=== PATIENT | male | born 1970 | race Caucasian/White ===

== ENCOUNTER → 2018-01-10 | Outpatient (CLI) | payer BC ==
--- NOTE | 2018-01-10 07:55 | MR ---
EXAMINATION TYPE: MR lumbar spine wo con DATE OF EXAM: 01/10/2018 COMPARISON: None HISTORY: Herniated nucleus pulposus / Degenerative disc dis TECHNIQUE: Multiplanar, multisequence images of the lumbar spine were acquired. FINDINGS: Lumbar spine vertebral bodies maintain normal vertebral body heights and alignment. Bone ma rrow signal is within normal limits with slight heterogeneity. Cauda equina terminates at T12-L1. Mul tilevel disc desiccation is seen. L1-L2: Normal disc appearance without desiccation. No herniation, protrusion or disc bulging. No ca nal stenosis is present. Foramina are patent bilaterally. L2-L3: There is a small broad-based disc bulge with mild facet arthropathy without significant spinal canal stenosis or neural foraminal narrowing. L3-L4: There is a left foraminal disc protrusion/herniation with extent into the left lateral recess moderately narrowing the left neural foramen superimposed upon a broad-based disc bulge resulting in mild right neural foraminal narrowing. No significant spinal canal stenosis. L4-L5: There is a right foraminal disc protrusion/herniation abutting the exiting L4 nerve root on th e right moderately narrowing the right neuroforamen. This is superimposed upon a broad-based disc bul ge creating mild left neural foraminal narrowing without significant spinal canal stenosis. Facet art hropathy is seen at this level. L5-S1: There is a broad-based disc bulge without significant spinal canal stenosis or neural foramina l narrowing. IMPRESSION: 1. Left foraminal herniation at L4-L5 abutting the exiting L3 nerve root on the left creating moderat e left neural foraminal narrowing. 2. Right foraminal disc herniation at L4-L5 abutting the right exiting L4 nerve root creating moderat e right neural foraminal narrowing. 3. No evidence of malalignment, vertebral body height loss or spinal canal stenosis. 4. Minimal multilevel degenerative disc disease as described above resulting in variable degrees of n eural foraminal narrowing.
== END | disposition home or self-care (01) ==
LOC: RADMRIMAIN 06:06
PROVIDERS: ATTEND Orthopaedic Surgery
DX: M99.73 Connective tissue and disc stenosis of intervertebral foramina of lumbar region (principal); M51.26 Other intervertebral disc displacement, lumbar region; M51.36 Other intervertebral disc degeneration, lumbar region
CPT/HCPCS: 72148

== ENCOUNTER → 2018-01-23 | Outpatient (CLI) | payer BC ==
--- NOTE | 2018-01-23 23:23 | MR ---
EXAMINATION TYPE: MR hand RT wo/w con DATE OF EXAM: 01/23/2018 COMPARISON: None HISTORY: Rt thumb mass/lesion on distal joint-marked with vit. e cap CONTRAST: Standard multiplanar, multisequence MRI departmental protocol utilizing 7.5 mL intravenous Gadavist g adolinium contrast. FINDINGS: Exam concentrates on the thumb. There is a oval-shaped 13 x 5 mm fluid collection on the do rsal aspect of the IP joint of the thumb. I see no bony destructive process. There is no evidence of the thumb fracture. Flexor and extensor tendon of the thumb appears intact. There is small effusion a t the first MP joint. There is no pathologic enhancement. IMPRESSION: Small MP joint effusion consistent with synovitis. Oval-shaped cystic mass posterior to the IP joint of the thumb is consistent with a synovial cyst. No fracture seen. No evidence of osteomyelitis.
== END | disposition home or self-care (01) ==
LOC: RADMRIMAIN 06:11
PROVIDERS: ATTEND Orthopaedic Surgery
DX: M25.441 Effusion, right hand (principal); M25.841 Other specified joint disorders, right hand
CPT/HCPCS: 73220; A9581

== ENCOUNTER 2020-01-17 17:13 | Inpatient (IN) | payer OTHER ==
--- NOTE | 2020-01-17 18:57 | ED ---
General Adult HPI - General Chief complaint: GI Bleed Stated complaint: Blood in Stool post op Time Seen by Provider: 01/17/20 18:05 Source: patient, RN notes reviewed, old records reviewed Mode of arrival: ambulatory Limitations: no limitations - History of Present Illness Initial comments: This a 50-year-old male who presents emergency Department with bright red blood per rectum. She states he had a colonoscopy yesterday with a polypectomy and since 2:30 this afternoon he said 6 bright red blood bowel movements. Patient states he felt a little lightheaded at one time but no longer feels lightheaded. Patient denies shortness of breath patient denies any palpitations. Patient denies any chest pain. Patient denies any blood thinners. Patient states Dr. Darnell did the colonoscopy - Related Data Home Medications Medication Instructions Recorded Confirmed Multivitamins, Thera [Multivitamin 1 tab PO DAILY 01/17/20 01/17/20 (formulary)] [place]-3 Fatty Acids [[place]-3] 1,000 mg PO DAILY 01/17/20 01/17/20 Allergies Allergy/AdvReac Type Severity Reaction Status Date / Time No Known Allergies Allergy Verified 01/17/20 19:27 Review of Systems ROS Statement: Those systems with pertinent positive or pertinent negative responses have been documented in the HPI. ROS Other: All systems not noted in ROS Statement are negative. Past Medical History Past Medical History: No Reported History History of Any Multi-Drug Resistant Organisms: None Reported Additional Past Surgical History / Comment(s): bilat achilles tendon Past Psychological History: No Psychological Hx Reported Smoking Status: Former smoker Past Alcohol Use History: Occasional Past Drug Use History: None Reported General Exam - General Exam Comments Initial Comments: GENERAL: Patient is well-developed and well-nourished. Patient is nontoxic and well- hydrated and is in mild distress. ENT: Neck is soft and supple. No significant lymphadenopathy is noted. Oropharynx i s clear. Moist mucous membranes. Neck has full range of motion without eliciting any pain. EYES: The sclera were anicteric and conjunctiva were pink and moist. Extraocular movements were intact and pupils were equal round and reactive to light. Eyelids were unremarkable. PULMONARY: Unlabored respirations. Good breath sounds bilaterally. No audible rales rhonchi or wheezing was noted. CARDIOVASCULAR: There is a regular rate and rhythm without any murmurs gallops or rubs. ABDOMEN: Soft and nontender with normal bowel sounds. SKIN: Skin is clear with no lesions or rashes and otherwise unremarkable. NEUROLOGIC: Patient is alert and oriented x3. Cranial nerves II through XII are grossly intact. Motor and sensory are also intact. Normal speech, volume and content. Symmetrical smile. MUSCULOSKELETAL: Normal extremities with adequate strength and full range of motion. LYMPHATICS: No significant lymphadenopathy is noted PSYCHIATRIC: Normal psychiatric evaluation. Limitations: no limitations Course Vital Signs 01/17/20 01/17/20 01/17/20 18:06 19:30 19:56 Temperature 98.1 F Pulse Rate 99 80 57 L Respiratory 18 18 18 Rate Blood Pressure 115/87 126/80 105/68 O2 Sat by Pulse 100 97 97 Oximetry Medical Decision Making - Medical Decision Making Patient went into the bathroom to have his seventh bloody bowel movement he had a lot of cramping he became lightheaded and felt the ground slowly was no injury. Patient blood pressure was initially low he received a liter of fluid. An EKG was done at that time. EKG showed a normal sinus rhythm at 60 bpm [place] interval 142 QRS is 86 QT interval 396 QTC is 396. Patient's EKG shows no ST segment elevation or depression. I spoke with Dr. Wharton he agreed to admit the patient admitted the patient wrote admitting orders. Patient received a liter and a half of fluid in the emergency department. Patient's blood pressure responded quite quickly once we put him in [facility]. - Lab Data Result diagrams: 01/17/20 18:57 01/17/20 18:57 Lab Results 01/17/20 01/17/20 01/17/20 Range/Units 18:57 18:57 18:57 WBC 11.1 H (3.8-10.6) k/uL RBC 4.26 L (4.30-5.90) m/uL Hgb 13.1 (13.0-17.5) gm/dL Hct 40.0 (39.0-53.0) % MCV 93.8 (80.0-100.0) fL MCH 30.7 (25.0-35.0) pg MCHC 32.7 (31.0-37.0) g/dL RDW 12.9 (11.5-15.5) % Plt Count 299 (150-450) k/uL Neutrophils % 60 % Lymphocytes % 31 % Monocytes % 5 % Eosinophils % 2 % Basophils % 1 % Neutrophils # 6.6 (1.3-7.7) k/uL Lymphocytes # 3.4 (1.0-4.8) k/uL Monocytes # 0.6 (0-1.0) k/uL Eosinophils # 0.2 (0-0.7) k/uL Basophils # 0.1 (0-0.2) k/uL PT 10.0 (9.0-12.0) sec INR 1.0 (<1.2) APTT 20.5 L (22.0-30.0) sec Sodium 139 (137-145) mmol/L Potassium 4.5 (3.5-5.1) mmol/L Chloride 109 H (98-107) mmol/L Carbon Dioxide 21 L (22-30) mmol/L Anion Gap 9 mmol/L BUN 16 (9-20) mg/dL Creatinine 0.86 (0.66-1.25) mg/dL Est GFR (CKD-EPI)AfAm >90 (>60 ml/min/1.73 sqM) Est GFR (CKD-EPI)NonAf >90 (>60 ml/min/1.73 sqM) Glucose 140 H (74-99) mg/dL Calcium 9.0 (8.4-10.2) mg/dL Total Bilirubin 0.4 (0.2-1.3) mg/dL AST 34 (17-59) U/L ALT 35 (4-49) U/L Alkaline Phosphatase 43 (38-126) U/L Total Protein 6.3 (6.3-8.2) g/dL Albumin 4.1 (3.5-5.0) g/dL Disposition Clinical Impression: Lower gastrointestinal hemorrhage Disposition: ADMITTED IP TO THIS HOSP Referrals: Win Lacy DO [Primary Care Provider] - 1-2 days Time of Disposition: 20:00
[2020-01-17 19:13] LABS: Basophils # (A) 0.1 k/uL (0-0.2); Basophils % (A) 1 %; Eosinophils # (A) 0.2 k/uL (0-0.7); Eosinophils % (A) 2 %; HGB 13.1 gm/dL (13.0-17.5); Lymphocytes # (A) 3.4 k/uL (1.0-4.8); Lymphocytes % (A) 31 %; MCH 30.7 pg (25.0-35.0); MCHC 32.7 g/dL (31.0-37.0); MCV 93.8 fL (80.0-100.0); Mean Platelet Volume 7.7; Monocytes # (A) 0.6 k/uL (0-1.0); Monocytes % (A) 5 %; Neutrophils # (A) 6.6 k/uL (1.3-7.7); Neutrophils % (A) 60 %; Platelet Count 299 k/uL (150-450); RBC 4.26 m/uL (4.30-5.90); RDW 12.9 % (11.5-15.5); WBC 11.1 k/uL (3.8-10.6)
[2020-01-17 19:25] LABS: Partial Thromboplastin Time 20.5 sec (22.0-30.0)
[2020-01-17 19:29] LABS: ALT 35 U/L (4-49); AST 34 U/L (17-59); African American GFR (CKD) >90 (>60 ml/min/1.73 sqM); Albumin 4.1 g/dL (3.5-5.0); Alkaline Phosphatase 43 U/L (38-126); Anion Gap 9 mmol/L; Blood Urea Nitrogen 16 mg/dL (9-20); Carbon Dioxide 21 mmol/L (22-30); Chloride 109 mmol/L (98-107); Glucose 140 mg/dL (74-99); Non-African American GFR(CKD) >90 (>60 ml/min/1.73 sqM); Potassium 4.5 mmol/L (3.5-5.1); Sodium 139 mmol/L (137-145); Total Bilirubin 0.4 mg/dL (0.2-1.3); Total Protein 6.3 g/dL (6.3-8.2)
[2020-01-17] MEDS ORDERED: SODIUM CHLORIDE 0.9% 1,500 ML IV ONE (19:54)
[2020-01-17] MEDS ORDERED: SODIUM CHLORIDE 0.9% 1,000 ML IV ONE (20:00)
[2020-01-17 20:49] LABS: Basophils % (A) 0 %; Eosinophils # (A) 0.1 k/uL (0-0.7); Eosinophils % (A) 1 %; HCT 33.2 % (39.0-53.0); HGB 11.2 gm/dL (13.0-17.5); Lymphocytes # (A) 2.2 k/uL (1.0-4.8); Lymphocytes % (A) 14 %; MCH 32.2 pg (25.0-35.0); MCHC 33.7 g/dL (31.0-37.0); MCV 95.5 fL (80.0-100.0); Mean Platelet Volume 7.5; Monocytes # (A) 0.5 k/uL (0-1.0); Monocytes % (A) 3 %; Neutrophils % (A) 82 %; Platelet Count 269 k/uL (150-450); RBC 3.47 m/uL (4.30-5.90); RDW 12.8 % (11.5-15.5); WBC 15.9 k/uL (3.8-10.6)
[2020-01-17] MEDS ORDERED: SODIUM CHLORIDE 0.9% 2,000 ML IV ONE (20:51)
[2020-01-17] MEDS ORDERED: MAGNESIUM CITRATE 296 ML BOTTLE PO ONE (21:02)
[2020-01-17 23:44] LABS: Glucose,Whole Blood 158 mg/dL (75-99)
[2020-01-18 00:07] LABS: Glucose,Whole Blood 175 mg/dL (75-99)
[2020-01-18] MEDS ORDERED: SODIUM CHLORIDE 0.9% 2,000 ML IV ONE (00:20)
[2020-01-18 00:47] LABS: Basophils % (A) 0 %; Eosinophils # (A) 0.1 k/uL (0-0.7); Eosinophils % (A) 1 %; HCT 27.9 % (39.0-53.0); Lymphocytes # (A) 1.9 k/uL (1.0-4.8); Lymphocytes % (A) 18 %; MCH 29.7 pg (25.0-35.0); MCHC 31.4 g/dL (31.0-37.0); MCV 94.8 fL (80.0-100.0); Mean Platelet Volume 7.5; Monocytes # (A) 0.4 k/uL (0-1.0); Monocytes % (A) 3 %; Neutrophils # (A) 8.5 k/uL (1.3-7.7); Neutrophils % (A) 78 %; Platelet Count 236 k/uL (150-450); RBC 2.94 m/uL (4.30-5.90); RDW 12.9 % (11.5-15.5); WBC 10.9 k/uL (3.8-10.6)
[2020-01-18 00:50] LABS: HGB 8.8 gm/dL (13.0-17.5)
[2020-01-18] MEDS ORDERED: NALOXONE 0.4 MG/ML 1 ML VIAL IV PRN (00:57)
[2020-01-18 00:58] LABS: INR 1.1 (<1.2); Prothrombin Time 11.1 sec (9.0-12.0)
[2020-01-18 01:07] LABS: Partial Thromboplastin Time 21.8 sec (22.0-30.0)
[2020-01-18] MEDS ORDERED: PHENYLEPHRINE-0.9% NACL SYG 1 MG/10 ML SYRINGE ONE (01:16)
[2020-01-18] MEDS ORDERED: PROPOFOL 10 MG/ML 20 ML VIAL IV ONE (01:16)
[2020-01-18] MEDS ORDERED: IV FLUID CONTINUATION 1,000 ML IV ONE (01:24)
--- NOTE | 2020-01-18 01:45 | P.PCN ---
Date of Procedure: 01/18/20 Procedure(s) Performed: BRIEF HISTORY: Patient is a 50-year-old pleasant white male admitted to the hospital with acute severe post-polypectomy lower GI bleed. He had a colonoscopy done by on January 15 and had a 1.5 cm cecal polyp that was removed by snare polypectomy. 24 hours later he had significant lower GI bleeding and came to the emergency room yesterday evening and subsequently admitted to the hospital for further management. He'll stop his hemoglobin from 13-8 g/dL requiring 2 units of blood transfusion. He scheduled for a colonoscopy on an emergency basis at the bedside in the intensive care unit. PROCEDURE PERFORMED: Colonoscopy with Endo Clip placement. PREOPERATIVE DIAGNOSIS: Acute post polypectomy lower GI bleed. IV sedation per Anesthesia. PROCEDURE: After informed consent was obtained, the patient, was brought into the endoscopy unit. IV sedation was administered by Anesthesia under continuous monitoring. Digital rectal examination was normal. Initially the Olympus CF-160 flexible video colonoscope was then inserted in the rectum, gradually advanced into the cecum without any difficulty. Careful examination was performed as the scope was gradually being withdrawn. Ileocecal valve and the appendiceal orifice were visualized and appeared normal. There was large amount of fresh blood with clots noted throughout the entire colon. In the base of the cecum there was a large clot identified and as soon as the clot was dislodged the polypectomy site with a visible vessel was noted. 2 endoclips were placed on the visible vessel with good hemostasis. No further bleeding noted. At this time the scope was withdrawn. Clots and blood were suctioned and irrigated. Patient tolerated the procedure well. IMPRESSION: Visible vessel with a large clot noted in the base of the cecum at the site of recent polypectomy status post Endo Clip placement as described above with good hemostasis RECOMMENDATIONS: Findings of this examination were discussed with the patient as well as his . We will monitor him closely with CBC every 6 hours.. Transfuse as needed. Keep him nothing by mouth for now.
--- NOTE | 2020-01-18 06:03 | CONS ---
CONSULTATION DATE OF DICTATION: 01/18/2020 REASON FOR CONSULTATION: Acute post polypectomy GI bleed. HISTORY OF PRESENT ILLNESS: The patient is a 50-year-old pleasant white male who underwent a screening colonoscopy [address] Darnell at [facility] and was noted to have a 1.5 cm polyp in the base of the cecum that was removed by snare polypectomy. Twenty-four hours later, he started having significant lower GI bleed. He had at least 4 or 5 episodes of bright red blood per rectum. He came to the emergency room and was found to be hypotensive and was admitted to the hospital for further management. Initial hemoglobin was 13 g/dL. While he was on the floor, he subsequently continued to have significant bleeding and became hypotensive and was transferred to the intensive care unit. Repeat hemoglobin was 8.8 g/dL. He denies any abdominal pain. No nausea, vomiting. PAST MEDICAL HISTORY: Unremarkable. MEDICATIONS AT HOME: [place] 3 fatty acids and multivitamin. ALLERGIES: No known drug allergies. SOCIAL HISTORY: alcohol use. FAMILY HISTORY: Unremarkable. REVIEW OF SYSTEMS: CARDIOPULMONARY: No chest pain, shortness of breath. GENITOURINARY: No dysuria or hematuria. MUSCULOSKELETAL: Unremarkable. SKIN: Unremarkable. ENDOCRINE: Unremarkable. PSYCHIATRIC: Unremarkable. NEUROLOGY: Unremarkable. ENT/VISION: Unremarkable. CONSTITUTIONAL: No recent weight loss. No fever, chills, night sweats. PHYSICAL EXAMINATION: He appears comfortable, no apparent distress. Vital signs are stable. Blood pressure is 110/72, pulse rate 82 per minute. Afebrile. HEENT EXAMINATION: Unremarkable. Conjunctivae pink. Sclerae anicteric. Oral cavity no lesions. NECK: No JVD or lymph node enlargement. CHEST: Clear to auscultation. HEART: Regular rate and rhythm. ABDOMEN: Soft. Bowel sounds are positive. No organomegaly. EXTREMITIES: No pedal edema. SKIN: No rashes. NEUROLOGIC: Alert and oriented x3. No focal deficits. LABS: Initial hemoglobin 13.1. Repeat hemoglobin 8.8 6 hours later. IMPRESSION: Acute massive lower gastrointestinal bleed with hemodynamic instability likely from post polypectomy. He had a colonoscopy [address] Darnell that revealed a 1.5 cm cecal polyp that was removed by snare polypectomy. Hemoglobin dropped from 13 to 8.8 g/dL. RECOMMENDATIONS: 1. Transfuse with 2 units of PRBC. 2. We will proceed with colonoscopy on an emergency basis at the bedside for control of post polypectomy bleed. The plan was discussed with the patient and his at the bedside. Thank you for this consultation. MARIE / NATY: [id number] /
[2020-01-18] MEDS: PANTOPRAZOLE 40 MG/10 ML VIAL IVP SCH ×2 (09:00→20:49)
[2020-01-18 09:01] LABS: HCT 28.7 % (39.0-53.0); HGB 9.4 gm/dL (13.0-17.5); MCH 30.3 pg (25.0-35.0); MCHC 32.9 g/dL (31.0-37.0); MCV 92.2 fL (80.0-100.0); Mean Platelet Volume 7.5; Platelet Count 203 k/uL (150-450); RBC 3.11 m/uL (4.30-5.90); RDW 13.4 % (11.5-15.5); WBC 7.9 k/uL (3.8-10.6)
[2020-01-18 09:17] LABS: African American GFR (CKD) >90 (>60 ml/min/1.73 sqM); Anion Gap 2 mmol/L; Blood Urea Nitrogen 11 mg/dL (9-20); Carbon Dioxide 21 mmol/L (22-30); Chloride 114 mmol/L (98-107); Glucose 104 mg/dL (74-99); Non-African American GFR(CKD) >90 (>60 ml/min/1.73 sqM); Sodium 137 mmol/L (137-145)
--- NOTE | 2020-01-18 11:51 | P.GSHP ---
History of Present Illness H&P Date: 01/17/20 Chief Complaint: GI bleed This a 50-year-old male who underwent colonoscopy by Dr. Brannon yesterday. Patient. He had a cecal polyp which was removed with a snare biopsy. Patient developed rectal bleeding this afternoon around 1600. He had another bloody bowel movement. He then presented to emergency room. He has syncopal episode in the emergency room. With systolic blood pressures in the 80s. Patient currently receiving fluid bolus. Past Medical History Past Medical History: No Reported History History of Any Multi-Drug Resistant Organisms: None Reported Additional Past Surgical History / Comment(s): bilat achilles tendon Past Psychological History: No Psychological Hx Reported Smoking Status: Former smoker Past Alcohol Use History: Occasional Past Drug Use History: None Reported - Past Family History Father Family Medical History: Cancer, Coronary Artery Disease (CAD) Mother Family Medical History: Dementia Medications and Allergies Home Medications Medication Instructions Recorded Confirmed Type Multivitamins, Thera [Multivitamin 1 tab PO DAILY 01/17/20 01/17/20 History (formulary)] [place]-3 Fatty Acids [[place]-3] 1,000 mg PO DAILY 01/17/20 01/17/20 History Allergies Allergy/AdvReac Type Severity Reaction Status Date / Time No Known Allergies Allergy Verified 01/17/20 19:27 Surgical - Exam Vital Signs Temp Pulse Resp BP Pulse Ox 98.1 F 99 18 115/87 100 01/17/20 18:06 01/17/20 18:06 01/17/20 18:06 01/17/20 18:06 01/17/20 18:06 - General well developed, well nourished, no distress - Eyes PERRL - ENT normal pinna - Neck no masses - Respiratory normal expansion - Cardiovascular Rhythm: regular - Abdomen Abdomen: soft, non tender Results - Labs 01/18/20 08:40 01/18/20 08:40 Abnormal Lab Results - Last 24 Hours (Table) 01/17/20 01/17/20 01/17/20 Range/Units 18:57 18:57 18:57 WBC 11.1 H (3.8-10.6) k/uL RBC 4.26 L (4.30-5.90) m/uL Hgb (13.0-17.5) gm/dL Hct (39.0-53.0) % Neutrophils # (1.3-7.7) k/uL APTT 20.5 L (22.0-30.0) sec Chloride 109 H (98-107) mmol/L Carbon Dioxide 21 L (22-30) mmol/L Creatinine (0.66-1.25) mg/dL Glucose 140 H (74-99) mg/dL POC Glucose (mg/dL) (75-99) mg/dL Calcium (8.4-10.2) mg/dL Crossmatch 01/17/20 01/17/20 01/17/20 Range/Units 20:34 20:34 23:34 WBC 15.9 H (3.8-10.6) k/uL RBC 3.47 L (4.30-5.90) m/uL Hgb 11.2 L (13.0-17.5) gm/dL Hct 33.2 L (39.0-53.0) % Neutrophils # 13.0 H (1.3-7.7) k/uL APTT (22.0-30.0) sec Chloride (98-107) mmol/L Carbon Dioxide (22-30) mmol/L Creatinine (0.66-1.25) mg/dL Glucose (74-99) mg/dL POC Glucose (mg/dL) 158 H (75-99) mg/dL Calcium (8.4-10.2) mg/dL Crossmatch See Detail 01/18/20 01/18/20 01/18/20 Range/Units 00:05 00:15 00:15 WBC 10.9 H (3.8-10.6) k/uL RBC 2.94 L (4.30-5.90) m/uL Hgb 8.8 L D (13.0-17.5) gm/dL Hct 27.9 L (39.0-53.0) % Neutrophils # 8.5 H (1.3-7.7) k/uL APTT 21.8 L (22.0-30.0) sec Chloride (98-107) mmol/L Carbon Dioxide (22-30) mmol/L Creatinine (0.66-1.25) mg/dL Glucose (74-99) mg/dL POC Glucose (mg/dL) 175 H (75-99) mg/dL Calcium (8.4-10.2) mg/dL Crossmatch 01/18/20 01/18/20 Range/Units 08:40 08:40 WBC (3.8-10.6) k/uL RBC 3.11 L (4.30-5.90) m/uL Hgb 9.4 L (13.0-17.5) gm/dL Hct 28.7 L (39.0-53.0) % Neutrophils # (1.3-7.7) k/uL APTT (22.0-30.0) sec Chloride 114 H (98-107) mmol/L Carbon Dioxide 21 L (22-30) mmol/L Creatinine 0.60 L (0.66-1.25) mg/dL Glucose 104 H (74-99) mg/dL POC Glucose (mg/dL) (75-99) mg/dL Calcium 7.0 L (8.4-10.2) mg/dL Crossmatch Diabetes panel 01/17/20 01/18/20 Range/Units 18:57 08:40 Sodium 139 137 (137-145) mmol/L Potassium 4.5 4.0 (3.5-5.1) mmol/L Chloride 109 H 114 H (98-107) mmol/L Carbon Dioxide 21 L 21 L (22-30) mmol/L BUN 16 11 (9-20) mg/dL Creatinine 0.86 0.60 L (0.66-1.25) mg/dL Glucose 140 H 104 H (74-99) mg/dL Calcium 9.0 7.0 L (8.4-10.2) mg/dL AST 34 (17-59) U/L ALT 35 (4-49) U/L Alkaline Phosphatase 43 (38-126) U/L Total Protein 6.3 (6.3-8.2) g/dL Albumin 4.1 (3.5-5.0) g/dL Calcium panel 01/17/20 01/18/20 Range/Units 18:57 08:40 Calcium 9.0 7.0 L (8.4-10.2) mg/dL Albumin 4.1 (3.5-5.0) g/dL Pituitary panel 01/17/20 01/18/20 Range/Units 18:57 08:40 Sodium 139 137 (137-145) mmol/L Potassium 4.5 4.0 (3.5-5.1) mmol/L Chloride 109 H 114 H (98-107) mmol/L Carbon Dioxide 21 L 21 L (22-30) mmol/L BUN 16 11 (9-20) mg/dL Creatinine 0.86 0.60 L (0.66-1.25) mg/dL Glucose 140 H 104 H (74-99) mg/dL Calcium 9.0 7.0 L (8.4-10.2) mg/dL Adrenal panel 01/17/20 01/18/20 Range/Units 18:57 08:40 Sodium 139 137 (137-145) mmol/L Potassium 4.5 4.0 (3.5-5.1) mmol/L Chloride 109 H 114 H (98-107) mmol/L Carbon Dioxide 21 L 21 L (22-30) mmol/L BUN 16 11 (9-20) mg/dL Creatinine 0.86 0.60 L (0.66-1.25) mg/dL Glucose 140 H 104 H (74-99) mg/dL Calcium 9.0 7.0 L (8.4-10.2) mg/dL Total Bilirubin 0.4 (0.2-1.3) mg/dL AST 34 (17-59) U/L ALT 35 (4-49) U/L Alkaline Phosphatase 43 (38-126) U/L Total Protein 6.3 (6.3-8.2) g/dL Albumin 4.1 (3.5-5.0) g/dL Assessment and Plan Assessment: Acute GI bleed after colonoscopy. This most likely due to the polypectomy site. Patient will be typed and crossed. He'll remove the hospital. We will consult GI for possible intervention if bleeding persists.
--- NOTE | 2020-01-18 11:52 | P.PN ---
Progress Note - Text Progress Note Date: 01/18/20 The patient states he feels better. He's has no abdominal pain. He has been hemodialysis stable since his endoscopic procedure last night. He will was 9.4. On exam vital signs are stable. Abdomen soft. Status post GI bleed related to polypectomy excision. Patient appears to be in a stable with no further evidence of GI bleed. We will start him on diet.
--- NOTE | 2020-01-18 12:15 | P.CNPUL ---
History of Present Illness Consult date: 01/18/20 Requesting physician: Anish Feliz Reason for consult: other (Acute lower GI bleeding) Chief complaint: Bright red blood per rectum History of present illness: This is a 50-year-old white male underwent colonoscopy by Dr. dominguez on 01/16/20, and he had a cecal polyp removed with a snare biopsy. Patient was discharged home, however yesterday the patient came back to the ER around 4 PM complaining of recurrent episodes of bloody bowel movements. Patient had a syncopal episode in the ER, and blood pressure was in the 80s systolic. He received IV fluids. Initial hemoglobin was 11.2 on admission, patient was admitted to the floor, however he developed further episodes of lower GI bleeding, and he required 2 units of packed RBCs given last night. After 2 units, repeat hemoglobin was 9.4 . Patient was seen by gastroenterology on consultation, underwent colonoscopy earlier this morning, he was found to have a visible vessel with a large clot noted in the base of the cecum at the site of the recent polypectomy. Underwent endo clip placement with good hemostasis. Patient was sent back to the ICU, no further episodes of GI bleeding, patient was doing great. I saw the patient this morning, and felt strongly that the patient could be transferred out of the ICU and possibly consider for discharge home later today. Patient is asymptomatic. Denies any further episodes of GI bleeding since his last colonoscopy. Review of Systems Constitutional: Negative HEENT: Negative Pulmonary: Negative Cardiac: Negative GI: As noted in HPI. Genitourinary: Negative Muscular skeletal: Negative Skin: Negative Neuro: Negative Endocrine: Negative Hematologic: As noted in HPI. Psychiatric: Negative Past Medical History Past Medical History: No Reported History History of Any Multi-Drug Resistant Organisms: None Reported Additional Past Surgical History / Comment(s): bilat achilles tendon Past Psychological History: No Psychological Hx Reported Smoking Status: Former smoker Past Alcohol Use History: Occasional Past Drug Use History: None Reported - Past Family History Father Family Medical History: Cancer, Coronary Artery Disease (CAD) Mother Family Medical History: Dementia Medications and Allergies Home Medications Medication Instructions Recorded Confirmed Type Multivitamins, Thera [Multivitamin 1 tab PO DAILY 01/17/20 01/17/20 History (formulary)] Nine[place]-3 Fatty Acids [[place]ine[place]-3] 1,000 mg PO DAILY 01/17/20 01/17/20 History Allergies Allergy/AdvReac Type Severity Reaction Status Date / Time No Known Allergies Allergy Verified 01/17/20 19:27 Physical Exam Vitals: Vital Signs Temp Pulse Pulse Resp BP BP Pulse Ox 01/18/20 08:30 98 24 97/57 01/18/20 08:00 98.2 F 58 L 10 L 98/59 99 01/18/20 07:30 56 L 10 L 96/69 97 01/18/20 07:00 58 L 12 110/64 97 01/18/20 06:30 60 12 100/55 98 01/18/20 06:00 61 16 93/59 98 01/18/20 05:30 62 14 99/60 98 01/18/20 05:00 64 13 99/62 99 01/18/20 04:45 97.8 F 64 12 110/64 01/18/20 04:30 60 8 L 102/53 98 01/18/20 04:15 98.2 F 65 10 L 99/60 01/18/20 04:05 98.1 F 64 12 99/62 01/18/20 04:03 97.9 F 63 12 102/53 01/18/20 04:01 98.1 F 73 12 99/66 01/18/20 04:00 98.1 F 65 16 101/58 98 01/18/20 03:45 62 5 L 97/63 98 01/18/20 03:30 64 11 L 99/60 98 01/18/20 03:15 64 13 103/66 99 01/18/20 03:00 63 10 L 109/67 99 01/18/20 02:45 65 14 100/56 100 01/18/20 02:30 72 12 87/58 98 01/18/20 02:15 67 10 L 96/52 99 01/18/20 02:05 97.6 F 66 13 100/56 01/18/20 02:00 71 11 L 87/50 98 01/18/20 01:59 97.5 F L 95 12 88/51 01/18/20 01:55 85 12 87/50 96 01/18/20 01:50 95 8 L 87/50 98 01/18/20 01:45 106 H 10 L 91/54 100 01/18/20 01:40 98 11 L 94/56 100 01/18/20 01:35 98.0 F 100 0 L 78/48 100 01/18/20 01:30 94 21 113/73 100 01/18/20 01:25 98.5 F 88 8 L 113/73 100 01/18/20 01:20 75 16 113/73 100 01/18/20 01:15 71 28 H 111/69 100 01/18/20 01:00 65 12 105/63 99 01/18/20 00:30 66 8 L 115/71 98 01/17/20 23:43 97.9 F 59 L 18 106/68 96 01/17/20 22:15 98.4 F 68 18 99/65 99 01/17/20 21:31 98.1 F 61 18 113/74 100 01/17/20 19:56 57 L 18 105/68 97 01/17/20 19:30 80 18 126/80 97 01/17/20 18:06 98.1 F 99 18 115/87 100 Intake and Output 01/17/20 01/18/20 01/18/20 22:59 06:59 14:59 Intake Total 3730 75 Output Total 800 0 Balance 2930 75 Intake: IV 2800 75 Sodium Chloride 0.9% 1, 300 75 000 ml @ 75 mls/hr IV . [id number] ONE Rx#:[id number] Sodium Chloride 0.9% 2, 2000 000 ml @ 999 mls/hr IV . Q2H1M ONE Rx#:[id number] Blood Product 930 Rc As-1 Unit 310 [id number] Rc As-1 Unit 0 [id number] Output: Urine 300 0 Urine/Stool Mix 500 Other: Voiding Method Urinal # Voids 0 Weight 88.451 kg Physical Exam Gen.: Revealed a 50-year-old white male pleasant in no distress. Head: Atraumatic, normocephalic. HEENT:[Neck is supple.] [No neck masses.] [No thyromegaly.] [No JVD.] Chest: [Clear throughout, no crackles, no rhonchi, no wheezes.] Cardiac Exam: [Normal S1 and S2, no S3 gallop, no murmur.] Abdomen: [Soft, nontender, no megaly, no rebound, no guarding, normal bowel sounds.] Extremities: [No clubbing, no edema, no cyanosis.] Good pulses bilaterally. Neurological Exam: [No focal neurologic deficit.] Alert oriented 3. Psychiatric: Normal mood affect and normal mental status examination. Skin: No rashes. Results - Laboratory Findings CBC and BMP: 01/18/20 08:40 01/18/20 08:40 PT/INR, D-dimer PT 11.1 sec (9.0-12.0) 01/18/20 00:15 INR 1.1 (<1.2) 01/18/20 00:15 Abnormal lab findings: Abnormal Labs 01/17/20 01/17/20 01/17/20 18:57 18:57 18:57 WBC 11.1 H RBC 4.26 L Hgb Hct Neutrophils # APTT 20.5 L Chloride 109 H Carbon Dioxide 21 L Creatinine Glucose 140 H POC Glucose (mg/dL) Calcium Crossmatch 01/17/20 01/17/20 01/17/20 20:34 20:34 23:34 WBC 15.9 H RBC 3.47 L Hgb 11.2 L Hct 33.2 L Neutrophils # 13.0 H APTT Chloride Carbon Dioxide Creatinine Glucose POC Glucose (mg/dL) 158 H Calcium Crossmatch See Detail 01/18/20 01/18/20 01/18/20 00:05 00:15 00:15 WBC 10.9 H RBC 2.94 L Hgb 8.8 L D Hct 27.9 L Neutrophils # 8.5 H APTT 21.8 L Chloride Carbon Dioxide Creatinine Glucose POC Glucose (mg/dL) 175 H Calcium Crossmatch 01/18/20 01/18/20 08:40 08:40 WBC RBC 3.11 L Hgb 9.4 L Hct 28.7 L Neutrophils # APTT Chloride 114 H Carbon Dioxide 21 L Creatinine 0.60 L Glucose 104 H POC Glucose (mg/dL) Calcium 7.0 L Crossmatch Assessment and Plan Assessment: Impression: Acute massive lower GI bleeding related to recent polypectomy. Status post colonoscopy 2 days ago, and status post polypectomy of a 1.5 cm cecal polyp. Acute blood loss anemia, secondary to above. Status post repeat colonoscopy and endo clip placement with good hemostasis. Recommendation: Patient is presently doing quite well, No further episodes of bleeding, patient is hemodynamically stable. Transfer patient out of the ICU today, and consider discharging the patient home if cleared by general surgery and gastroenterology. Will follow when necessary Time with Patient: Greater than 30
[2020-01-18 15:18] LABS: HCT 25.6 % (39.0-53.0); HGB 8.5 gm/dL (13.0-17.5); MCHC 33.3 g/dL (31.0-37.0); MCV 93.1 fL (80.0-100.0); Mean Platelet Volume 8.1; Platelet Count 193 k/uL (150-450); RBC 2.75 m/uL (4.30-5.90); RDW 13.5 % (11.5-15.5); WBC 6.5 k/uL (3.8-10.6)
--- NOTE | 2020-01-18 15:51 | P.CONS ---
History of Present Illness - Reason for Consult Consult date: 01/18/20 Medical management, history of nicotine dependence Requesting physician: Anish Feliz - Chief Complaint Rectal bleeding - History of Present Illness This is a 50-year-old pleasant gentleman, recently underwent colonoscopy with polypectomy with Dr. Darnell on 01/16/20, discharged, developed bright red rectal bleeding at home with lightheadedness and returned to the ER. While in the ER, hypotensive, with systolic blood pressures in the 80s, with a syncopal episode. Hemoglobin 11.2 on admission, continued having rectal bleeding and dropped to 8.5, Received IV fluid resuscitation and 2 units of packed RBCs. Current hemoglobin 9.4. Evaluated by GI, underwent colonoscopy this morning discovering a large clot at the base of the cecum and at the site of recent polypectomy, status post Endo Clip placement. Currently denies chest pain, palpitations or shortness of breath. Denies lightheadedness, dizziness or focal deficits. EKG reporting normal sinus rhythm. Review of Systems ROS Statement: Those systems with pertinent positive or pertinent negative responses have been documented in the HPI. ROS Other: All systems not noted in ROS Statement are negative. Past Medical History Past Medical History: No Reported History History of Any Multi-Drug Resistant Organisms: None Reported Additional Past Surgical History / Comment(s): bilat achilles tendon Past Psychological History: No Psychological Hx Reported Smoking Status: Former smoker Past Alcohol Use History: Occasional Past Drug Use History: None Reported - Past Family History Father Family Medical History: Cancer, Coronary Artery Disease (CAD) Mother Family Medical History: Dementia Medications and Allergies Home Medications Medication Instructions Recorded Confirmed Type Multivitamins, Thera [Multivitamin 1 tab PO DAILY 01/17/20 01/17/20 History (formulary)] Cas[place]-3 Fatty Acids [Casanova-3] 1,000 mg PO DAILY 01/17/20 01/17/20 History Allergies Allergy/AdvReac Type Severity Reaction Status Date / Time No Known Allergies Allergy Verified 01/17/20 19:27 Physical Exam Vitals: Vital Signs Temp Pulse Pulse Resp BP BP Pulse Ox 01/18/20 15:00 98.2 F 61 18 105/66 99 01/18/20 08:30 98 24 97/57 01/18/20 08:00 98.2 F 58 L 10 L 98/59 99 01/18/20 07:30 56 L 10 L 96/69 97 01/18/20 07:00 58 L 12 110/64 97 01/18/20 06:30 60 12 100/55 98 01/18/20 06:00 61 16 93/59 98 01/18/20 05:30 62 14 99/60 98 01/18/20 05:00 64 13 99/62 99 01/18/20 04:45 97.8 F 64 12 110/64 01/18/20 04:30 60 8 L 102/53 98 01/18/20 04:15 98.2 F 65 10 L 99/60 01/18/20 04:05 98.1 F 64 12 99/62 01/18/20 04:03 97.9 F 63 12 102/53 01/18/20 04:01 98.1 F 73 12 99/66 01/18/20 04:00 98.1 F 65 16 101/58 98 01/18/20 03:45 62 5 L 97/63 98 01/18/20 03:30 64 11 L 99/60 98 01/18/20 03:15 64 13 103/66 99 01/18/20 03:00 63 10 L 109/67 99 01/18/20 02:45 65 14 100/56 100 01/18/20 02:30 72 12 87/58 98 01/18/20 02:15 67 10 L 96/52 99 01/18/20 02:05 97.6 F 66 13 100/56 01/18/20 02:00 71 11 L 87/50 98 01/18/20 01:59 97.5 F L 95 12 88/51 01/18/20 01:55 85 12 87/50 96 01/18/20 01:50 95 8 L 87/50 98 01/18/20 01:45 106 H 10 L 91/54 100 01/18/20 01:40 98 11 L 94/56 100 01/18/20 01:35 98.0 F 100 0 L 78/48 100 01/18/20 01:30 94 21 113/73 100 01/18/20 01:25 98.5 F 88 8 L 113/73 100 01/18/20 01:20 75 16 113/73 100 01/18/20 01:15 71 28 H 111/69 100 01/18/20 01:00 65 12 105/63 99 01/18/20 00:30 66 8 L 115/71 98 01/17/20 23:43 97.9 F 59 L 18 106/68 96 01/17/20 22:15 98.4 F 68 18 99/65 99 01/17/20 21:31 98.1 F 61 18 113/74 100 01/17/20 19:56 57 L 18 105/68 97 01/17/20 19:30 80 18 126/80 97 01/17/20 18:06 98.1 F 99 18 115/87 100 Intake and Output 01/18/20 01/18/20 01/18/20 06:59 14:59 22:59 Intake Total 3730 75 600 Output Total 800 0 600 Balance 2930 75 0 Intake: IV 2800 75 600 Sodium Chloride 0.9% 1, 300 75 600 000 ml @ 75 mls/hr IV . [id number] ONE Rx#:[id number] Sodium Chloride 0.9% 2, 2000 000 ml @ 999 mls/hr IV . Q2H1M ONE Rx#:[id number] Blood Product 930 Rc As-1 Unit 310 [id number] Rc As-1 Unit 0 [id number] Output: Urine 300 0 600 Urine/Stool Mix 500 Other: Voiding Method Urinal # Voids 0 2 # Bowel Movements 2 PHYSICAL EXAM: VITAL SIGNS: [As above] GENERAL: Sitting up in bed, no acute distress HEENT: Conjunctivae normal. eyes normal. Oral mucosa moist NECK: No JVD. No thyroid enlargement. No LNs CARDIOVASCULAR: S1, S2 regular.. No murmur RESPIRATION: Breath sounds diminished in the bases. No rhonchi or crackles. No bronchial breathing. ABDOMEN: Soft, nontender . No guarding. no masses palpable. No ascites, No hepatosplenomegaly.Bowel sounds heard. LEGS: No edema. no swelling PSYCHIATRY: Alert and oriented X3, mood and affect normal. NERVOUS SYSTEM: Cranial N 2-12 grossly normal. Moves all 4 limbs. No focal deficits. Strength and sensation grossly intact.. Skin: no rash Lymphatic system. No LN neck axilla. Results CBC & Chem 7: 01/18/20 15:05 01/18/20 08:40 Labs: Abnormal Lab Results - Last 24 Hours (Table) 07/01/17/20 01/17/20 Range/Units 18:57 18:57 18:57 WBC 11.1 H (3.8-10.6) k/uL RBC 4.26 L (4.30-5.90) m/uL Hgb (13.0-17.5) gm/dL Hct (39.0-53.0) % Neutrophils # (1.3-7.7) k/uL APTT 20.5 L (22.0-30.0) sec Chloride 109 H (98-107) mmol/L Carbon Dioxide 21 L (22-30) mmol/L Creatinine (0.66-1.25) mg/dL Glucose 140 H (74-99) mg/dL POC Glucose (mg/dL) (75-99) mg/dL Calcium (8.4-10.2) mg/dL Crossmatch 01/17/20 01/17/20 01/17/20 Range/Units 20:34 20:34 23:34 WBC 15.9 H (3.8-10.6) k/uL RBC 3.47 L (4.30-5.90) m/uL Hgb 11.2 L (13.0-17.5) gm/dL Hct 33.2 L (39.0-53.0) % Neutrophils # 13.0 H (1.3-7.7) k/uL APTT (22.0-30.0) sec Chloride (98-107) mmol/L Carbon Dioxide (22-30) mmol/L Creatinine (0.66-1.25) mg/dL Glucose (74-99) mg/dL POC Glucose (mg/dL) 158 H (75-99) mg/dL Calcium (8.4-10.2) mg/dL Crossmatch See Detail 01/18/20 01/18/20 01/18/20 Range/Units 00:05 00:15 00:15 WBC 10.9 H (3.8-10.6) k/uL RBC 2.94 L (4.30-5.90) m/uL Hgb 8.8 L D (13.0-17.5) gm/dL Hct 27.9 L (39.0-53.0) % Neutrophils # 8.5 H (1.3-7.7) k/uL APTT 21.8 L (22.0-30.0) sec Chloride (98-107) mmol/L Carbon Dioxide (22-30) mmol/L Creatinine (0.66-1.25) mg/dL Glucose (74-99) mg/dL POC Glucose (mg/dL) 175 H (75-99) mg/dL Calcium (8.4-10.2) mg/dL Crossmatch 01/18/20 01/18/20 01/18/20 Range/Units 08:40 08:40 15:05 WBC (3.8-10.6) k/uL RBC 3.11 L 2.75 L (4.30-5.90) m/uL Hgb 9.4 L 8.5 L (13.0-17.5) gm/dL Hct 28.7 L 25.6 L (39.0-53.0) % Neutrophils # (1.3-7.7) k/uL APTT (22.0-30.0) sec Chloride 114 H (98-107) mmol/L Carbon Dioxide 21 L (22-30) mmol/L Creatinine 0.60 L (0.66-1.25) mg/dL Glucose 104 H (74-99) mg/dL POC Glucose (mg/dL) (75-99) mg/dL Calcium 7.0 L (8.4-10.2) mg/dL Crossmatch Assessment and Plan Assessment: Acute lower GI bleed status post recent colonoscopy with polypectomy Acute blood loss anemia secondary to the above Status post F/U colonoscopy with Endo Clip placement with good hemostasis Prior nicotine dependent Plan: Continue on current current medications, monitoring and symptomatic treatment. Close monitoring of CBC/coags. Scheduled for transfer out of ICU. Discharge planning in progress. The impression and plan of care has been dictated as directed. : I performed a history and examination of this patient, discussed the same with the dictator. I agree with the dictator's note ,documented as a scribe. Any additional findings or plans will be noted.
[2020-01-18 22:14] LABS: HCT 26.3 % (39.0-53.0); HGB 8.7 gm/dL (13.0-17.5); MCH 30.4 pg (25.0-35.0); MCHC 33.1 g/dL (31.0-37.0); MCV 92.1 fL (80.0-100.0); Mean Platelet Volume 7.8; Platelet Count 204 k/uL (150-450); RBC 2.85 m/uL (4.30-5.90); RDW 13.4 % (11.5-15.5)
[2020-01-19 04:26] LABS: HCT 26.4 % (39.0-53.0); HGB 9.3 gm/dL (13.0-17.5); MCH 32.5 pg (25.0-35.0); MCHC 35.1 g/dL (31.0-37.0); MCV 92.5 fL (80.0-100.0); Mean Platelet Volume 7.7; Platelet Count 200 k/uL (150-450); RBC 2.85 m/uL (4.30-5.90); RDW 13.1 % (11.5-15.5); WBC 6.2 k/uL (3.8-10.6)
[2020-01-19 04:47] LABS: African American GFR (CKD) >90 (>60 ml/min/1.73 sqM); Anion Gap 1 mmol/L; Blood Urea Nitrogen 5 mg/dL (9-20); Carbon Dioxide 25 mmol/L (22-30); Chloride 111 mmol/L (98-107); Glucose 106 mg/dL (74-99); Non-African American GFR(CKD) >90 (>60 ml/min/1.73 sqM); Potassium 4.2 mmol/L (3.5-5.1); Sodium 137 mmol/L (137-145)
[2020-01-19] MEDS ORDERED: PANTOPRAZOLE 40 MG TABLET PO SCH (08:15)
[2020-01-19 08:25] VITALS: BP 105/72; PULSE 69; RESP 18; TEMP 98.7
--- NOTE | 2020-01-19 12:13 | P.DS ---
Providers Date of admission: 01/18/20 07:56 Expected date of discharge: 01/19/20 Attending physician: Anish Feliz Consults: 01/18/20 00:23 Consult Physician Urgent Consulting Provider: Monty Fenton Consult Reason/Comments: ICU Do you want consulting provider notified?: Yes 01/18/20 00:25 Consult Physician Stat Consulting Provider: Leigh Goncalves Consult Reason/Comments: Active GI Bleed Do you want consulting provider notified?: Yes Primary care physician: Win Layc - Discharge Diagnosis(es) (1) Colonoscopy causing post-procedural bleeding Status: Acute (2) Lower gastrointestinal hemorrhage Status: Acute Hospital Course: Patient came in with bleed following colonoscopy with polypectomy. He has clipping of visible vessel at the cecum. He is tolerating diet. Hemoglobin has improved. He denies any abdominal pain. 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 Patient stable for discharge. ROS: No reports of nausea and vomiting. Had bowel movements. No fevers or chills. No new chest pain. No productive sputum PHYSICAL EXAM: VITAL SIGNS: Reviewed CONSTITUTIONAL: Well developed and in no acute distress. EYES: Conjuctivae without sclera icterus. Extraocular movements grossly intact. HEAD, EARS, NOSE, THROAT: Moist buccal mucosa. Head is atraumatic, normocephalic. Hears conversational speech. No nasal drainage. NECK: Supple. No thyroidomegaly. RESPIRATORY: Non-labored respirations and equal bilateral excursions. CARDIOVASCULAR: Palpable 2+ radial pulses. Regular rate. Regular rhythm. ABDOMEN: Soft. No peritonitis. Nontender MUSCULOSKELETAL: No gross deformity of the lower extremities noted. No clubbing. No cyanosis. SKIN: Good skin turgor. Well perfused. NEUROLOGIC: Cranial nerves II through XII grossly intact. No focal or lateralizing signs. PSYCH: Appropriate affect. Alert and oriented to person, place and time. CLINICAL LABS: Hemoglobin elevated from 8.7-9.3. WBC normal 6.2. ASSESSMENT: 1. Acute blood loss anemia, hemoglobin down from 13.1 to 8.5 2. Status post colonoscopy with polypectomy PLAN: 1. Patient stable for discharge Vital Signs Temp 98.7 F 01/19/20 08:23 Pulse 69 01/19/20 08:23 Resp 18 01/19/20 08:23 BP 105/72 01/19/20 08:23 Pulse Ox 99 01/19/20 08:23 Intake & Output 01/19/20 01/19/20 01/20/20 06:59 18:59 06:59 Intake Total 480 Balance 480 Intake: Oral 480 Other: # Voids 0 2 Laboratory Last Values WBC 6.2 k/uL (3.8-10.6) 01/19/20 04:08 RBC 2.85 m/uL (4.30-5.90) L 01/19/20 04:08 Hgb 9.3 gm/dL (13.0-17.5) L 01/19/20 04:08 Hct 26.4 % (39.0-53.0) L 01/19/20 04:08 MCV 92.5 fL (80.0-100.0) 01/19/20 04:08 MCH 32.5 pg (25.0-35.0) 01/19/20 04:08 MCHC 35.1 g/dL (31.0-37.0) 01/19/20 04:08 RDW 13.1 % (11.5-15.5) 01/19/20 04:08 Plt Count 200 k/uL (150-450) 01/19/20 04:08 Neutrophils % 78 % 01/18/20 00:15 Lymphocytes % 18 % 01/18/20 00:15 Monocytes % 3 % 01/18/20 00:15 Eosinophils % 1 % 01/18/20 00:15 Basophils % 0 % 01/18/20 00:15 Neutrophils # 8.5 k/uL (1.3-7.7) H 01/18/20 00:15 Lymphocytes # 1.9 k/uL (1.0-4.8) 01/18/20 00:15 Monocytes # 0.4 k/uL (0-1.0) 01/18/20 00:15 Eosinophils # 0.1 k/uL (0-0.7) 01/18/20 00:15 Basophils # 0.0 k/uL (0-0.2) 01/18/20 00:15 PT 11.1 sec (9.0-12.0) 01/18/20 00:15 INR 1.1 (<1.2) 01/18/20 00:15 APTT 21.8 sec (22.0-30.0) L 01/18/20 00:15 Sodium 137 mmol/L (137-145) 01/19/20 04:08 Potassium 4.2 mmol/L (3.5-5.1) 01/19/20 04:08 Chloride 111 mmol/L (98-107) H 01/19/20 04:08 Carbon Dioxide 25 mmol/L (22-30) 01/19/20 04:08 Anion Gap 1 mmol/L 01/19/20 04:08 BUN 5 mg/dL (9-20) L 01/19/20 04:08 Creatinine 0.66 mg/dL (0.66-1.25) 01/19/20 04:08 Est GFR (CKD-EPI)AfAm >90 (>60 ml/min/1.73 sqM) 01/19/20 04:08 Est GFR (CKD-EPI)NonAf >90 (>60 ml/min/1.73 sqM) 01/19/20 04:08 Glucose 106 mg/dL (74-99) H 01/19/20 04:08 POC Glucose (mg/dL) 175 mg/dL (75-99) H 01/18/20 00:05 POC Glu Hop Separator Rui Rapp 01/18/20 00:05 Plasma Lactic Acid Anthony 1.5 mmol/L (0.7-2.0) 01/18/20 00:15 Calcium 8.0 mg/dL (8.4-10.2) L 01/19/20 04:08 Total Bilirubin 0.4 mg/dL (0.2-1.3) 01/17/20 18:57 AST 34 U/L (17-59) 01/17/20 18:57 ALT 35 U/L (4-49) 01/17/20 18:57 Alkaline Phosphatase 43 U/L (38-126) 01/17/20 18:57 Total Protein 6.3 g/dL (6.3-8.2) 01/17/20 18:57 Albumin 4.1 g/dL (3.5-5.0) 01/17/20 18:57 Coronavirus (PCR) Not Detected (Not Detected) 01/17/20 20:34 Blood Type A Positive 01/17/20 20:34 Blood Type Confirm A Positive 01/17/20 20:30 Blood Type Recheck No Previous Record 01/17/20 20:34 Bld Type Recheck Status CABO Indicated 01/17/20 20:34 Antibody Screen NEGATIVE 01/17/20 20:34 Crossmatch See Detail 01/17/20 20:34 Spec Expiration Date 01/20/2020 - 233301/17/20 20:34 Patient Condition at Discharge: Good Plan - Discharge Summary Discharge Rx Participant: Yes New Discharge Prescriptions: Discontinued Multivitamins, Thera [Multivitamin (formulary)] 1 tab PO DAILY [place]-3 Fatty Acids [[place]-3] 1,000 mg PO DAILY Follow up Appointment(s)/Referral(s): Domingo Darnell MD [Medical Doctor] - 2 Weeks Win Lacy DO [Primary Care Provider] - 1-2 days Patient Instructions/Handouts: Gastrointestinal Bleeding (DC) Activity/Diet/Wound Care/Special Instructions: May take tylenol for pain. Avoid supplements including multivitamin and fish oil, NSAIDs such as ibuprofen, aspirin for 1 week, may resume January 25. Discharge Disposition: HOME SELF-CARE
--- NOTE | 2020-01-19 17:26 | PN ---
PROGRESS NOTE DATE OF SERVICE: 01/19/2020 The patient is a 50-year-old white male admitted to the hospital with severe significant post polypectomy lower GI bleed following a colonoscopy two days earlier. 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 He is doing well. Bleeding has stopped. Hemoglobin stable, status post 2 units of blood transfusion. Last hemoglobin 9.5. No bowel movement so far. Doing well on a clear liquid diet. PHYSICAL EXAMINATION: Blood pressure 105/72, pulse is 69, temperature 98.7. HEENT examination unremarkable. Conjunctivae pink. Sclerae anicteric. Oral cavity no lesions. NECK: No JVD. No lymph node enlargement. CHEST was clear to auscultation. HEART: Regular rate and rhythm. ABDOMEN: Soft. Bowel sounds are positive. EXTREMITIES: No pedal edema. SKIN: No rashes NEURO: Alert and oriented x3. No focal deficits. LABS: Done today, hemoglobin 9.3, WBC 6.2, platelets 200. IMPRESSION: Acute post polypectomy lower gastrointestinal bleed, status post 2 units of blood transfusion. Now hemoglobin is stable, status post colonoscopy with Endoclip placement early yesterday morning. He remains hemodynamically stable and no further bleeding. RECOMMENDATIONS: 1. Advance diet as tolerated. 2. Patient can be discharged home today with outpatient followup as needed. Thank you for this consultation. MMODL / IJN: [id number] /
--- NOTE | 2020-01-21 10:59 | CDI ---
Documentation Clarification Form Date: 01/21/20 From: Hailey Quezada Phone: If you have a question about this query, please contact Cecelia Akins, [facility] Specialist at [phone] between 8am and 5pm. Admit Date: 01/18/20 Discharge Date:01/19/20 Patient Name: Mamadou Mendoza Visit Number: [id number] ATTENTION: The Clinical Documentation Specialists (CDI) and [facility] Coding Staff appreciate your assistance in clarifying documentation. Please respond to the clarification below the line at the bottom and electronically sign. The CDI & [facility] Coding staff will review the response and follow-up if needed. Please note: Queries are made part of the Legal Health Record. If you have any questions, please contact the author of this message via ITS. Dear Dr. Feliz Patient is hypotensive is documented in Dr. Goncalves's and Nirmala Reynoso's consult notes. History/Risk Factors: Recent polypectomy, postop GI bleed, acute blood loss anemia Clinical Indicators: Decreased blood pressure Patients B/P: 115/87 on admission; 01/17 - 78/48, 113/73, 117/73, 91/54, 78/48, 94/56, 91/54, 87/50, 87/50, 88/51, 87/50, 100/56, 96/52, 87/58, 100/56, 109/67, 103/66, 99/60, 97/63 Labs: WBC 11.1, Hgb/Hct 13.1/40.0 on admit, 8.5/25.6 on 01/17 Treatment: 5 liter NS bolus In your professional opinion, can you please specify the etiology of the hypotension if known? Iatrogenic Hypotension Idiopathic Hypotension Postoperative Hypotension Shock Cardiogenic Hypovolemic Other Condition, please specify Unable to determine Hypovolemic postoperative hypotension MTDD
== END 2020-01-19 13:10 | disposition home or self-care (01) | DRG 920 ==
LOC: EC 17:13 → 5NMEDONC 20:01 → 2SICU 01-18 00:23 → OBSVTOIN 01-18 07:56
PROVIDERS: ADMIT Surgery; ATTEND Surgery
PROC: 0W3P8ZZ Control Bleeding in Gastrointestinal Tract, Via Natural or Artificial Opening Endoscopic (ICD-10-PCS; principal; 2020-01-18 01:05)
DX: K91.840 Postprocedural hemorrhage of a digestive system organ or structure following a digestive system procedure (principal); D62 Acute posthemorrhagic anemia; I95.89 Other hypotension; R55 Syncope and collapse; Z11.59 Encounter for screening for other viral diseases; Z86.010 Personal history of colon polyps; Z87.891 Personal history of nicotine dependence; Z82.49 Family history of ischemic heart disease and other diseases of the circulatory system; Z80.9 Family history of malignant neoplasm, unspecified; Z82.0 Family history of epilepsy and other diseases of the nervous system; Y83.8 Other surgical procedures as the cause of abnormal reaction of the patient, or of later complication, without mention of misadventure at the time of the procedure
CPT/HCPCS: 36415; 45382; 80048; 80053; 83605; 85025; 85027; 85610; 85730; 86850; 86900; 86901; 86920; 93005; 96360; 96361; 99285

== ENCOUNTER → 2023-02-07 | Outpatient (CLI) | payer OTHER ==
--- NOTE | 2023-02-07 10:18 | CTL ---
EXAMINATION TYPE: CT Low Dose Lung DATE OF EXAM ORDERED: 02/07/2023 HISTORY: One pack a day smoker for 30 years.. Lung cancer screening CT DLP: 100.[address] CTDI: 2.6 mGy Automated exposure control for dose reduction was used. SCREENING VISIT: This is a baseline examination. COMPARISON: None available. TECHNIQUE: Low dose computed tomography scan was performed through the chest at 1 mm thick sections a nd reconstructed images in multiple planes at 1 mm and 5 mm thick sections. FINDINGS: Nodules: There is a 3.5 mm nodule in the right upper lobe on series 4 image 63. There is a 3.5 mm nodule in th e right upper lobe on series 4 image 90. A 3.7 mm nodule in the right upper lobe on series 4 image 10 6. There is a 3 mm nodule in the right upper lobe on series 4 image 132. There is a 4.4 mm nodule in the right upper lobe on series 4 image 163. There is a 4 mm nodule in the right upper lobe on series 4 image 163 as well. The nodule along the major fissure within the right lower lobe measuring 7.7 mm in diameter. This is seen on series 4 image 168. There is a 3.7 mm nodule in the left upper lobe on s eries 4 image 115. Is a 5.6 mm nodule in the left lower lobe on series 4 image 246. Lungs: Normal. Mediastinum: Normal. Coronary artery calcification: There are no significant coronary calcifications. Aorta/Cardiac Chambers: Normal. Upper Abdomen: Normal. Chest Wall: Symmetric bilateral gynecomastia is noted. Musculoskeletal: Normal. IMPRESSION: 1. Multiple bilateral pulmonary nodules as described above. ACR LUNGRADS CATEGORY:LungRads 3 - PROBA SHANTI BENIGN FINDINGS: Short term follow up suggested. This includes nodules with a low likelihood of becoming a clinically active cancer. Probability of malignancy considered to be ~1-2%. Recommendation: Low Dose CT in 6 months. 2. No additional acute findings identified.
== END | disposition home or self-care (01) ==
LOC: RADCTMAIN 08:28
PROVIDERS: ATTEND Family Medicine
DX: Z12.2 Encounter for screening for malignant neoplasm of respiratory organs (principal); R91.8 Other nonspecific abnormal finding of lung field; F17.210 Nicotine dependence, cigarettes, uncomplicated
CPT/HCPCS: 71271

== ENCOUNTER → 2023-08-17 | Outpatient (CLI) | payer OTHER ==
--- NOTE | 2023-08-17 20:35 | CTL ---
EXAMINATION TYPE: CT Low Dose Lung DATE OF EXAM: 08/17/2023 4:57 PM CLINICAL INDICATION:Male, 53 years old with history of R91.1 KOURTNEY MULTIPLE PULM NODULES; Former smoker , quit 5 years ago. 1 ppd x 30 years , history of tobacco use. COMPARISON: 02/07/2023 TECHNIQUE: Multiple axial non-contrast scans were obtained from approximately t he lung apices through the upper abdomen. Coronal and sagittal reformatted images were obtained. Low dose technique was utilized. CT DLP: 142.5 mGycm, Automated exposure control for dose reduction was used. CT Contrast: Contrast used: None Oral contrast used: None FINDINGS: ======== Lack of intravenous contrast and low dose technique limits the evaluation of the vascular and soft ti ssue structures. LUNGS: No evidence of pulmonary fibrosis. No evidence of focal consolidation, pneumothorax or pleural effusion. Mild emphysema changes seen throughout the lungs. Nodules: RUL: 3 mm image 68, 3 mm image 89, 3 mm image 1:15 RML: None. RLL: Intrafissural lymph node series 5 image 35 ULISES: 4 mm image 118, 2 mm image 170 LLL: 3 mm image 241 AIRWAY: Patent and unremarkable. HEART: Size within normal limits. MEDIASTINUM: No gross evidence of adenopathy. VASCULATURE: No aortic aneurysm. MUSCULOSKELETAL: No acute osseous abnormalities SOFT TISSUES/LYMPH NODES: Unremarkable. LOWER NECK: No significant findings. UPPER ABDOMEN: No significant findings. IMPRESSION: 1. No clinically significant pulmonary nodules. 2. Mild emphysema. CT LUNG RAD AND CT CHEST RECOMMENDATION: Lung-Rad 2 Benign Appearance or Behavior: Continue annual sc reening with LDCT in 12 months. S Modifier (other clinically significant findings): None Recommend smoking cessation (if current smoker), or continuation of smoking cessation (if prior smoke r). Annual screening for lung cancer with low-dose computed tomography is recommended in adults ages 55 to 77 years who have a 30 pack-year smoking history and currently smoke or have quit within the pa st 15 years. Screening should be discontinued once a person has not smoked for 15 years or develops a health problem that substantially limits life expectancy or the ability or willingness to have curat danny lung surgery. Lung rads 2021 [email or web address]
== END | disposition home or self-care (01) ==
LOC: RADCTMAIN 16:37
PROVIDERS: ATTEND Internal Medicine Critical Care Medicine
DX: Z12.2 Encounter for screening for malignant neoplasm of respiratory organs (principal); J43.9 Emphysema, unspecified; R91.8 Other nonspecific abnormal finding of lung field; Z87.891 Personal history of nicotine dependence
CPT/HCPCS: 71271

== ENCOUNTER → 2024-08-18 | Outpatient (CLI) | payer OTHER ==
--- NOTE | 2024-08-18 09:14 | CTL ---
EXAMINATION TYPE: CT Low Dose Lung DATE OF EXAM: 08/18/2024 8:26 AM COMPARISON: None. SCREENING VISIT: Initial CT DIAGNOSTIC QUALITY: Satisfactory CLINICAL INDICATION: Male, 54 years old with history of Z12.2 ENCNTR SCREEN FOR MALIGNANT NEOPLASM OF RESP, history of smoker, Lung cancer screening, History of tobacco use. TECHNIQUE: Low dose computed tomography scan was performed through the chest at 1 mm thick sections a nd reconstructed images in the coronal plane at 1 mm thick sections. Contrast used: mL of , (none if empty) Oral contrast used: (none if empty) CT DLP: 93.8 mGycm, Automated exposure control for dose reduction was used. CT CTDI: 2.4 mGy, Automated exposure control for dose reduction was used. FINDINGS: LUNG NODULES: Present, detailed below: 1. 0.4 cm nodule anterior lateral left upper lung field. Series 4 image 110. Present previously. 2. 0.3 cm punctate peripheral density anterior right upper lung field. Series 4 image 104. Present pr eviously. 3. 0.4 cm peripheral anterior right midlung density. Series 4 image 161, present previously. LUNGS: COPD: Severity: None Fibrosis: Severity: None Lymph nodes: None Other findings: None RIGHT PLEURAL SPACE: Effusion: None Calcification: None Thickening: None Pneumothorax: None LEFT PLEURAL SPACE: Effusion: None Calcification: None Thickening: None Pneumothorax: None HEART: Other: Ascending thoracic aorta at the level the main pulmonary artery measures 3.8 cm. The main pul monary artery at the bifurcation measures 2.8r cm. Heart Size: Normal Coronary calcification: Pericardial effusion: None OTHER FINDINGS: Upper abdomen: There is some thickening of the left adrenal gland 0.4 cm. Bony thorax: Normal Supraclavicular region: Normal IMPRESSION: 1. Stable punctate nodules. 2. Mild thickening of the left adrenal gland present previously. FOLLOW UP CT CHEST RECOMMENDATION: Follow up limited CT chest one year CT LUNG RAD: Lung-Rad 2 Benign Appearance or Behavior [facility], , 08/18/2024 9:12 AM
== END | disposition home or self-care (01) ==
LOC: RADCTMAIN 08:05
PROVIDERS: ATTEND Family Medicine
DX: Z12.2 Encounter for screening for malignant neoplasm of respiratory organs (principal); E27.8 Other specified disorders of adrenal gland; R91.8 Other nonspecific abnormal finding of lung field; Z87.891 Personal history of nicotine dependence
CPT/HCPCS: 71271